=== PATIENT | female | born 1980 | race Caucasian/White ===

== ENCOUNTER 2016-12-15 17:42 | Emergency (ER) | payer BC, OTHER ==
[~2016-12-15] VITALS: Ht 165.1 cm; Wt 59.0 kg
[~2016-12-15 17:42] MED LIST: ACETAMIN-HYDROcod 325-5 MG PO; CIPR500T4 PO; FIORIC PO; ZOFR4TAB3 PO
[2016-12-15 17:44] VITALS: BP 135/70; PULSE 100; RESP 24; TEMP 97.8; O2SAT 100
[2016-12-15] MEDS ORDERED: MORPHINE SULFATE 4 MG/ML INJ IV PUSH ONE ×2 (20:30→22:15)
[2016-12-15] MEDS ORDERED: ONDANSETRON HCL 4 MG/2 ML VIAL IV PUSH ONE (20:30)
[2016-12-15 20:37] VITALS: O2SAT 99
--- NOTE | 2016-12-15 20:37 | PD ---
HPI Chief Complaint: Chest Pain Time Seen by Provider: 20:33 Travel History International Travel<30 days: No Contact w/Intl Traveler<30days: No Traveled to known affect area: No History of Present Illness HPI 36 yo female that presents to the ED for evaluation of left sided chest pain that radiated to her back. Patient reports that she's had this since about 2 hours. Per patient is pretty constant. Very painful 10 out of 10. Causes some shortness of breath with deep breaths. She denies any recent travel. No nausea or vomiting or fever. No cough or runny nose. Patient states that all she been doing today was helping cleaning but no acute injury that she can think of. She does have a history of gastric illness for which she is not really specific. Per patient she had some issues with her esophagus the needed to be dilated. Per patient she also has a history of sepsis in the past. She denies any similar symptoms like this before lower than 2 years ago when she had similar symptoms and she had a full workup that was essentially negative. From what I can tell patient was put on a Holter monitor with no obvious diagnoses. Patient has had no issues since until today. She denies any recent travel. Per patient she denies secondary to tubal ligation. 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]) Migraines: Yes ?: Not LMP: LAST MONTH Tubal Ligation: Yes Past Surgical History Abdominal Surgery: Yes (gall bladder) Ear Surgery: Yes (skin graft to eardrum) Oral Surgery: Yes (ESOPHAGEAL STRETCHING) Other Surgery: Yes (HOLES IN EARS REPAIRED ) Social History Alcohol Use: No Tobacco Use: No Substance Use: No Allergies-Medications (Allergen,Severity, Reaction): Coded Allergies: Codeine (Verified Allergy, Severe, Nausea/Vomiting, 02/16/16) *MDRO Multi-Drug Resistant Organism (Verified Adverse Reaction, Unknown, ) MRSA PCR screen (nares) POSITIVE - 02/16/16 Reported Meds & Prescriptions Reported Meds & Active Scripts Active Indomethacin 50 Mg Cap 50 Mg PO TID PRN Take with food, milk, or antacids to decrease stomach adverse effects. Percocet (Oxycodone-Acetaminophen) 5-325 mg Tab 1 Tab PO Q6H PRN Zofran ODT (Ondansetron HCl) 4 Mg Tab 4 Mg PO Q8HR PRN Cipro (Ciprofloxacin HCl) 500 Mg Tab 500 Mg PO BID 7 Days Fioricet Tab (Acetaminophen/Butalbital/Caffeine) 1 Tab 1 Tab PO Q6H PRN [ACETAMIN-HYDROcod 325-5 MG] 1 TAB Tab 1 Tab PO Q6HR PRN Review of Systems Except as stated in HPI: all other systems reviewed are Neg Physical Exam Narrative GENERAL: SKIN: Warm and dry. HEAD: Atraumatic. Normocephalic. EYES: Pupils equal and round. No scleral icterus. No injection or drainage. ENT: No nasal bleeding or discharge. Mucous membranes pink and moist. Tongue is midline. No uvula deviation. NECK: Trachea midline. No JVD. CARDIOVASCULAR: Regular rate and rhythm. No murmurs, S3, S4. Some of the pain is reproducible with touch. RESPIRATORY: No accessory muscle use. Clear to auscultation. Breath sounds equal bilaterally. GASTROINTESTINAL: Abdomen soft, non-tender, nondistended. Hepatic and splenic margins not palpable. MUSCULOSKELETAL: Extremities without clubbing, cyanosis, or edema. No obvious deformities. Full range of motion of the upper and lower extremities bilaterally. 2+ pulses bilaterally. NEUROLOGICAL: Awake and alert. No obvious cranial nerve deficits. Motor grossly within normal limits. Five out of 5 muscle strength in the arms and legs. Normal speech. PSYCHIATRIC: Appropriate mood and affect; insight and judgment normal. Data Data Last Documented VS Vital Signs Date Time Temp Pulse Resp B/P Pulse Ox O2 Delivery O2 Flow Rate FiO2 12/15/16 21:03 18 12/15/16 20:37 99 12/15/16 20:37 77 Room Air 12/15/16 17:44 97.8 135/70 Orders Electrocardiogram (12/15/16 ) Electrocardiogram (12/15/16 20:22) Complete Blood Count With Diff (12/15/16 20:22) Comprehensive Metabolic Panel (12/15/16 20:22) Ckmb (Isoenzyme) Profile (12/15/16 20:22) Troponin I (12/15/16 20:22) Lipase (12/15/16 20:22) D-Dimer (12/15/16 20:22) Magnesium (Mg) (12/15/16 20:22) Thyroid Stimulating Hormone (12/15/16 20:22) Chest, Single Ap (12/15/16 20:22) Iv Access Insert/Monitor (12/15/16 20:22) Ecg Monitoring (12/15/16 20:22) Oximetry (12/15/16 20:22) Morphine Inj (Morphine Inj) (12/15/16 20:30) Ondansetron Inj (Zofran Inj) (12/15/16 20:30) Ketorolac Inj (Toradol Inj) (12/15/16 21:30) Labs Laboratory Tests Test 12/15/16 20:30 White Blood Count 12.3 TH/MM3 Red Blood Count 4.74 MIL/MM3 Hemoglobin 14.2 GM/DL Hematocrit 42.3 % Mean Corpuscular Volume 89.2 FL Mean Corpuscular Hemoglobin 29.9 PG Mean Corpuscular Hemoglobin 33.6 % Concent Red Cell Distribution Width 13.6 % Platelet Count 281 TH/MM3 Mean Platelet Volume 8.0 FL Neutrophils (%) (Auto) 66.7 % Lymphocytes (%) (Auto) 23.6 % Monocytes (%) (Auto) 6.9 % Eosinophils (%) (Auto) 2.3 % Basophils (%) (Auto) 0.5 % Neutrophils # (Auto) 8.2 TH/MM3 Lymphocytes # (Auto) 2.9 TH/MM3 Monocytes # (Auto) 0.8 TH/MM3 Eosinophils # (Auto) 0.3 TH/MM3 Basophils # (Auto) 0.1 TH/MM3 CBC Comment DIFF FINAL Differential Comment D-Dimer Quantitative (PE/DVT) 0.33 MG/L FEU Sodium Level 139 MEQ/L Potassium Level 3.8 MEQ/L Chloride Level 104 MEQ/L Carbon Dioxide Level 23.9 MEQ/L Anion Gap 11 MEQ/L Blood Urea Nitrogen 15 MG/DL Creatinine 0.82 MG/DL Estimat Glomerular Filtration 78 ML/MIN Rate Random Glucose 83 MG/DL Calcium Level 9.3 MG/DL Magnesium Level 2.4 MG/DL Total Bilirubin 0.4 MG/DL Aspartate Amino Transf 13 U/L (AST/SGOT) Alanine Aminotransferase 17 U/L (ALT/SGPT) Alkaline Phosphatase 65 U/L Total Creatine Kinase 54 U/L Troponin I LESS THAN 0.02 NG/ML Total Protein 7.7 GM/DL Albumin 4.0 GM/DL Lipase 167 U/L Thyroid Stimulating Hormone 1.330 uIU/ML 3rd [facility] Medical Decision Making Medical Screen Exam Complete: Yes Emergency Medical Condition: Yes Medical Record Reviewed: Yes Interpretation(s) Last Impressions Chest X-Ray 12/15/162021 Signed Impressions: Service Date/Time: Thursday, December 15, 2016 20:44 - CONCLUSION: No evidence of acute cardiopulmonary disease. Rob Goddard MD CBC & BMP Diagram 12/15/16 20:30 Lipase and LFTs WNL troponin and CKMB negative EKG shows sinus rhythm with no sign of acute ischemia or arrhythmia. Per my attending read this possible OR depressions and some of the leads but there is a lot of motion The EKG. Possible Pericarditis Cannot Be Rule Out. Differential Diagnosis Chest pain versus a typical chest pain versus ACS versus PE Narrative Course 36-year-old female that presents to the ED for evaluation of left-sided chest pain. Patient was properly examined and was found to have signs and symptoms of unclear etiology. My attending Dr. Dewitt evaluated the patient with me. Labs and imaging were ordered. Pain medication ordered. Labs and imaging showed no sign of acute disease. D-dimer and everything came out negative. Case was discussed with my attending Dr. Dewitt who had already evaluated the patient and was made aware of all findings including the EKG and he recommends trial of anti-inflammatories and Percocet for pain. Unlikely this is pericarditis more likely muscular. This was discussed with the patient and family member who in agreement with plan. Patient was given another dose of morphine as she was still somewhat tender. Patient was told to come back to the ED if symptoms do not improve by tomorrow or the pain at all does not improve with medications given. See ED for any worsening symptoms. Diagnosis Primary Impression: Atypical chest pain Patient Instructions: General Instructions Additional Instructions: Take medications as prescribed. Follow-up with PCP. See ED for any worsening symptoms. Do not drink or drive while taking pain medication. Apply ice or heat as needed for pain Med/Other Pt SpecificInfo: Prescription(s) given Scripts Indomethacin 50 Mg Cap50 Mg PO TID PRN (PAIN SCALE 1 TO 10) #20 CAP Ref 0 Take with food, milk, or antacids to decrease stomach adverse effects. Prov:Markus Dewitt MD 12/15/16 Oxycodone-Acetaminophen (Percocet)5-325 mg Tab1 Tab PO Q6H PRN (PAIN) #20 TAB Ref 0 Prov:Markus Dewitt MD 12/15/16 Disposition: 01 DISCHARGE HOME Condition: Bhanu Summers Dec 15, 2016 20:37
[2016-12-15 21:03] VITALS: RESP 18
[2016-12-15 21:03] LABS: AUTOMATED NEUTROPHIL # 8.2 TH/MM3 (1.8-7.7); BASOPHIL # 0.1 TH/MM3 (0-0.2); BASOPHIL % 0.5 % (0.0-2.0); EOSINOPHIL # 0.3 TH/MM3 (0-0.4); EOSINOPHIL % 2.3 % (0.0-4.0); HEMATOCRIT 42.3 % (35.0-46.0); HEMO FLAGS DIFF FINAL; LYMPH % 23.6 % (9.0-44.0); LYMPHOCYTE # 2.9 TH/MM3 (1.0-4.8); MEAN CELL VOLUME 89.2 FL (80.0-100.0); MEAN CORPUSCULAR HEMOGLOBIN 29.9 PG (27.0-34.0); MEAN CORPUSCULAR HGB CONC 33.6 % (32.0-36.0); MONO % 6.9 % (0.0-8.0); NEUT % 66.7 % (16.0-70.0); PLATELET COUNT 281 TH/MM3 (150-450); RED BLOOD COUNT 4.74 MIL/MM3 (4.00-5.30); RED CELL DISTRIBUTION WIDTH 13.6 % (11.6-17.2); WHITE BLOOD COUNT 12.3 TH/MM3 (4.0-11.0)
--- NOTE | 2016-12-15 21:09 | RADRPT ---
EXAM DATE/TIME: 12/15/2016 20:44 [facility] COMPARISON: No previous studies available for comparison. INDICATIONS : Left sided chest pain starting today MEDICAL HISTORY : None. SURGICAL HISTORY : None. ENCOUNTER: Initial ACUITY: 1 day PAIN SCORE: 10/10 LOCATION: Left chest FINDINGS: A single view of the chest demonstrates the lungs to be symmetrically aerated without evidence of mas s, infiltrate or effusion. The cardiomediastinal contours are unremarkable. Osseous structures are intact. CONCLUSION: No evidence of acute cardiopulmonary disease. Rob Goddard MD on December 15, 2016 at 21:07 Board Certified Radiologist. This report was verified electronically.
[2016-12-15] MEDS ORDERED: KETOROLAC TROMETHAMINE 30 MG/ML (IVP) VIAL IV PUSH ONE (21:30)
[2016-12-15 21:34] LABS: ANION GAP 11 MEQ/L (5-15); AST (GOT) 13 U/L (15-37); BICARBONATE 23.9 MEQ/L (21.0-32.0); BLOOD UREA NITROGEN 15 MG/DL (7-18); CHLORIDE 104 MEQ/L (98-107); GLOMERULAR FILTRATION RATE 78 ML/MIN (>89); MAGNESIUM 2.4 MG/DL (1.5-2.5); POTASSIUM 3.8 MEQ/L (3.5-5.1); SODIUM (NA) 139 MEQ/L (136-145)
[2016-12-15 21:35] LABS: ALT (GPT) 17 U/L (10-53)
[2016-12-15 21:45] LABS: ALKALINE PHOSPHATASE 65 U/L (45-117); TOTAL BILIRUBIN ADULT 0.4 MG/DL (0.2-1.0)
[2016-12-15 21:48] LABS: CREATINE KINASE 54 U/L (26-192)
[2016-12-15] MEDS ORDERED: INDO50CA PO (22:02)
[2016-12-15] MEDS ORDERED: PERC5TAB12 PO (22:02)
--- NOTE | 2016-12-15 22:16 | PD ---
Data Data Last Documented VS Vital Signs Date Time Temp Pulse Resp B/P Pulse Ox O2 Delivery O2 Flow Rate FiO2 12/15/16 21:03 18 12/15/16 20:37 99 12/15/16 20:37 77 Room Air 12/15/16 17:44 97.8 135/70 Orders Electrocardiogram (12/15/16 ) Electrocardiogram (12/15/16 20:22) Complete Blood Count With Diff (12/15/16 20:22) Comprehensive Metabolic Panel (12/15/16 20:22) Ckmb (Isoenzyme) Profile (12/15/16 20:22) Troponin I (12/15/16 20:22) Lipase (12/15/16 20:22) D-Dimer (12/15/16 20:22) Magnesium (Mg) (12/15/16 20:22) Thyroid Stimulating Hormone (12/15/16 20:22) Chest, Single Ap (12/15/16 20:22) Iv Access Insert/Monitor (12/15/16 20:22) Ecg Monitoring (12/15/16 20:22) Oximetry (12/15/16 20:22) Morphine Inj (Morphine Inj) (12/15/16 20:30) Ondansetron Inj (Zofran Inj) (12/15/16 20:30) Ketorolac Inj (Toradol Inj) (12/15/16 21:30) Morphine Inj (Morphine Inj) (12/15/16 22:15) Labs Laboratory Tests Test 12/15/16 20:30 White Blood Count 12.3 TH/MM3 Red Blood Count 4.74 MIL/MM3 Hemoglobin 14.2 GM/DL Hematocrit 42.3 % Mean Corpuscular Volume 89.2 FL Mean Corpuscular Hemoglobin 29.9 PG Mean Corpuscular Hemoglobin 33.6 % Concent Red Cell Distribution Width 13.6 % Platelet Count 281 TH/MM3 Mean Platelet Volume 8.0 FL Neutrophils (%) (Auto) 66.7 % Lymphocytes (%) (Auto) 23.6 % Monocytes (%) (Auto) 6.9 % Eosinophils (%) (Auto) 2.3 % Basophils (%) (Auto) 0.5 % Neutrophils # (Auto) 8.2 TH/MM3 Lymphocytes # (Auto) 2.9 TH/MM3 Monocytes # (Auto) 0.8 TH/MM3 Eosinophils # (Auto) 0.3 TH/MM3 Basophils # (Auto) 0.1 TH/MM3 CBC Comment DIFF FINAL Differential Comment D-Dimer Quantitative (PE/DVT) 0.33 MG/L FEU Sodium Level 139 MEQ/L Potassium Level 3.8 MEQ/L Chloride Level 104 MEQ/L Carbon Dioxide Level 23.9 MEQ/L Anion Gap 11 MEQ/L Blood Urea Nitrogen 15 MG/DL Creatinine 0.82 MG/DL Estimat Glomerular Filtration 78 ML/MIN Rate Random Glucose 83 MG/DL Calcium Level 9.3 MG/DL Magnesium Level 2.4 MG/DL Total Bilirubin 0.4 MG/DL Aspartate Amino Transf 13 U/L (AST/SGOT) Alanine Aminotransferase 17 U/L (ALT/SGPT) Alkaline Phosphatase 65 U/L Total Creatine Kinase 54 U/L Troponin I LESS THAN 0.02 NG/ML Total Protein 7.7 GM/DL Albumin 4.0 GM/DL Lipase 167 U/L Thyroid Stimulating Hormone 1.330 uIU/ML 3rd Gen [facility] Supervised Visit with COLLINS: Yes Narrative Course The history, exam, and medical decision-making in the associated mid-level provider note were completed with my assistance. I reviewed and agree with the findings presented. I attest that I had a [id number] encounter with the patient on the same day, and personally performed and documented my assessment and findings in the medical record. *My assessment and Findings: 36 year-old woman constant chest pain 3 hours, no clear relieving factors. EKG may suggest some pericarditis. Pain is not positional in nature. No other symptoms to confirm pericarditis. Labs are unremarkable. X-rays unremarkable. We'l recommend conservative management, NSAIDs, pain medicine if needed. Diagnosis Primary Impression: Atypical chest pain Patient Instructions: General Instructions Additional Instruction: Take medications as prescribed. Follow-up with PCP. See ED for any worsening symptoms. Do not drink or drive while taking pain medication. Apply ice or heat as needed for pain Scripts Indomethacin 50 Mg Cap50 Mg PO TID PRN (PAIN SCALE 1 TO 10) #20 CAP Ref 0 Take with food, milk, or antacids to decrease stomach adverse effects. Prov:Markus Dewitt MD 12/15/16 Oxycodone-Acetaminophen (Percocet)5-325 mg Tab1 Tab PO Q6H PRN (PAIN) #20 TAB Ref 0 Prov:Markus Dewitt MD 12/15/16 Disposition: 01 DISCHARGE HOME Condition: Stable Markus Dewitt MD Dec 15, 2016 22:16
--- NOTE | 2016-12-16 15:28 | EKG ---
Date Performed: 12/15/2016 Time Performed: 18:04:46 PTAGE: 36 years EKG: Sinus rhythm WITH MARKED SINUS ARRHYTHMIA BORDERLINE ECG Compared to prior tracing no significant change PREVIOUS TRACING : 02/15/2016 18.40 DOCTOR: Alphonso Keating Interpretating Date/Time 12/16/2016 15:27:21
== END 2016-12-15 22:39 | disposition home or self-care (01) ==
LOC: NEPE 17:42
DX: R07.89 Other chest pain (principal); R06.02 Shortness of breath; I49.8 Other specified cardiac arrhythmias
CPT/HCPCS: 71010; 80053; 82550; 83690; 83735; 84443; 84484; 85025; 85379; 93005; 96374; 96375; 96376; 99285; J1885; J2270; J2405

== ENCOUNTER 2017-06-15 08:55 | Emergency (ER) | payer OTHER ==
[~2017-06-15] VITALS: Ht 165.1 cm; Wt 62.8 kg
[~2017-06-15 08:55] MED LIST changes: +INDO50CA PO; +PERC5TAB12 PO
[2017-06-15 09:22] VITALS: BP 134/71; PULSE 86; RESP 16; TEMP 98.1; O2SAT 97
--- NOTE | 2017-06-15 09:41 | PD ---
HPI Chief Complaint: Back/ Neck Pain or Injury Time Seen by Provider: 09:32 Travel History International Travel<30 days: No Contact w/Intl Traveler<30days: No Traveled to known affect area: No History of Present Illness HPI Patient comes in complaining of right low back pain that began 5 days ago. Patient denies any loss or change in bowel or bladder, fevers, IV drug use, or reports she's had a tubal ligation. Patient describes pain is sharp stabbing pain radiates down her right lower extremity. Pain is worse with certain movement. Patient has been going to a chiropractor for adjustments along with having a TENS unit in place with no improvement of symptoms. Denies any chest pain, abdominal pain, shortness of breath, or numbness or tingling anywhere. Denies any trauma. 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 PFSH Past Medical History Anxiety: Yes Depression: Yes Cancer: Yes Cardiovascular Problems: Yes Diminished Hearing: No Gastrointestinal Disorders: Yes GERD: Yes Headaches: Yes Neurologic: Yes Psychiatric: Yes Reproductive: Yes (cevical cancer[froze cervix]) Migraines: Yes Influenza Vaccination: No ?: Not LMP: 2 weeks ago Tubal Ligation: Yes Past Surgical History Abdominal Surgery: Yes (gall bladder) Ear Surgery: Yes (skin graft to eardrum) Oral Surgery: Yes (ESOPHAGEAL STRETCHING) Other Surgery: Yes (HOLES IN EARS REPAIRED ) Social History Alcohol Use: No Tobacco Use: No Substance Use: No Allergies-Medications (Allergen,Severity, Reaction): Coded Allergies: codeine (Unverified Allergy, Severe, Nausea/Vomiting, 06/15/17) *MDRO Multi-Drug Resistant Organism (Verified Adverse Reaction, Unknown, 06/15/17) MRSA PCR screen (nares) POSITIVE - 02/16/16 Reported Meds & Prescriptions Reported Meds & Active Scripts Active Flexeril (Cyclobenzaprine HCl) 10 Mg Tab 10 Mg PO Q8HR PRN Naprosyn (Naproxen) 500 Mg Tab 500 Mg PO Q12HR PRN Review of Systems Except as stated in HPI: all other systems reviewed are Neg Physical Exam Narrative GENERAL: Well-developed, well nourished, in no acute distress, and non-ill appearing. SKIN: Focused skin assessment warm and dry. HEAD: Atraumatic. Normocephalic. EYES: Pupils equal and round. EOMI. No scleral icterus. No injection or drainage. ENT: No nasal bleeding or discharge. Mucous membranes pink and moist. NECK: Trachea midline. Supple. No nuclear rigidity. RESPIRATORY: No accessory muscle use. No respiratory distress. GASTROINTESTINAL: Abdomen soft, non-tender, nondistended, and no guarding. Hepatic and splenic margins not palpable. No pulsatile mass. MUSCULOSKELETAL: No obvious deformities. No clubbing. No cyanosis. No edema. Full range of motion. No tenderness or crepitus or midline lumbar spine. Patient reportedly palpation right lateral lumbar muscles. Straight leg test positive on the right. Normal gait. NEUROLOGICAL: Awake and alert. No obvious cranial nerve deficits. Motor grossly within normal limits. Normal speech. PSYCHIATRIC: Appropriate mood and affect; insight and judgment normal. Data Data Last Documented VS Vital Signs Date Time Temp Pulse Resp B/P (MAP) Pulse Ox O2 Delivery O2 Flow Rate FiO2 06/15/17 11:48 77 16 113/80 (91) 100 06/15/17 09:22 98.1 Orders Orders Urinalysis - C+S If Indicated (06/15/17 09:16) Ketorolac Inj (Toradol Inj) (06/15/17 09:45) Orphenadrine Inj (Norflex Inj) (06/15/17 09:45) Ct Abd/Pel W/O Iv Contrast (06/15/17 10:12) Ed Discharge Order (06/15/17 11:05) Acetamin-Hydrocod 325-5 Mg ([place] 5-325 (06/15/17 11:15) Acetamin-Hydrocod 325-5 Mg ([place] 5-325 (06/15/17 11:18) Labs Laboratory Tests Test 06/15/17 09:40 Urine Collection Type CLEAN CATCH Urine Color YELLOW Urine Turbidity CLEAR Urine pH 5.0 Urine Specific [place] 1.028 Urine Protein NEG mg/dL Urine Glucose (UA) NEG mg/dL Urine Ketones TRACE mg/dL Urine Occult Blood SMALL Urine Nitrite NEG Urine Bilirubin NEG Urine Leukocyte Esterase NEG Urine RBC 4-9 /hpf Urine WBC 0-2 /hpf Urine Squamous Epithelial Cells > 8 /hpf Urine Bacteria FEW /hpf Microscopic Urinalysis Comment CULT NOT INDICATED Urine Collection Time 09:40 [facility] Medical Decision Making Medical Screen Exam Complete: Yes Emergency Medical Condition: Yes Interpretation(s) CT abdomen and pelvis read by the radiologist shows: 1. The small gas bubbles within the right buttock region. This is felt to be from previous injection. 2. The examination is otherwise unremarkable. Differential Diagnosis Fracture, strain, UTI, renal calculi Narrative Course The patient presented complaining of back pain. There was no history of recent fall or blunt trauma. However, history elicited activity likely causing muscular strain and injury. There was no evidence to support genitourinary etiology. There is also no evidence to suggest vascular pathology such as AAA dissection. No fevers or other evidence to suspect infectious processes, abscess , osteomyelitis etc. The patients neurological exam is normal with normal motor and sensory. There is no saddle paresthesias reported and no bowel or bladder incontinence or retention. I suspect the pain is mechanical in nature. Clinical suspicion, plan of care and management was discussed with the patient. The patient was instructed to follow up with their health care provider. The patient was also instructed to return if the pain worsened, changed, or developed weakness or bowel or bladder trouble. The patient agreed with plan. Patient was found to have asymptomatic hematuria. No obvious evidence of infection. CT scan ruled out kidney stone. This finding was discussed with the patient and the patient was instructed to follow up with primary care doctor to recheck urine and possible referral to urology if needed and rule out etiologies such as cancer. Patient agreed with plan. Patient in no obvious distress upon re-evaluation. All pertinent laboratory/ Radiology result(s) discussed with patient. Patient was asked if they wanted to speak to my attending, which the patient did not wish to do at this time. Any questions/concerns in reference to patient diagnosis/condition discussed and clarified prior to patient's discharge. Reinforced sheer importance of close follow up with patient's primary physician or primary care clinic and/or orthopedic. Instructed patient to return to ED immediately, if symptoms return/ worsen. Patient showed understanding of above instructions. Further instructions and recommendations were detailed in discharge paperwork. Patient ambulated without difficulty out of ED at discharge. Diagnosis Primary Impression: Back pain Qualified Codes: M54.41 - Lumbago with sciatica, right side Referrals: Jhony Fernandez MD [facility] Patient Instructions: Acute Low Back Pain (ED), General Instructions, Lower Back Exercises (ED) Additional Instructions: Follow-up with your primary care physician and/or orthopedics in 3-5 days for reevaluation. Follow-up with adjuster piano action regarding questionable fibroid noted on CT today. Take all medication as prescribed. Return to the emergency department if symptoms get worse. Med/Other Pt SpecificInfo: Prescription(s) given Scripts Cyclobenzaprine (Flexeril) 10 Mg Tab 10 MG PO Q8HR Y for MUSCLE PAIN, #15 TAB 0 Refills Prov: Alva Stevens MD 06/15/17 Naproxen (Naprosyn) 500 Mg Tab 500 MG PO Q12HR Y for PAIN SCALE 1 TO 10, #14 TAB 0 Refills Prov: Alva Stevens MD 06/15/17 Disposition: 01 DISCHARGE HOME Condition: Stable Quinton Dickson Jun 15, 2017 09:41
[2017-06-15] MEDS ORDERED: KETOROLAC TROMETHAMINE 60 MG/2 ML (IM) VIAL IM ONE (09:45)
[2017-06-15] MEDS ORDERED: ORPHENADRINE INJ 60 MG/2 ML AMP IM ONE (09:45)
[2017-06-15 09:55] LABS: BLOOD, URINE SMALL (NEG); GLUCOSE,URINE NEG (NEG); KETONE, URINE TRACE mg/dL (NEG); NITRITE,URINE NEG (NEG)
[2017-06-15 10:03] LABS: METHOD OF COLLECTION CLEAN CATCH; URINE COLOR YELLOW (YELLW/STRAW); WBC, URINE 0-2 /hpf (0-5)
[2017-06-15 10:04] LABS: BACTERIA, URINE FEW /hpf; COMMENT (UR) CULT NOT INDICATED; CULTURE IF INDICATED CULT NOT INDICATED; SQUAMOUS EPITHELIAL CELL URINE > 8 /hpf (0-5)
--- NOTE | 2017-06-15 10:56 | RADRPT ---
EXAM DATE/TIME: 06/15/2017 10:39 [facility] COMPARISON: CT ABDOMEN & PELVIS W/O CONTRAST, February 16, 2016, 4:18. INDICATIONS : Low back pain x 5 days. ORAL CONTRAST: No oral contrast ingested. RADIATION DOSE: 9.32 CTDIvol (mGy) MEDICAL HISTORY : Gastroesophageal reflux disease. SURGICAL HISTORY : Tubal ligation. Cholecystectomy. ENCOUNTER: Initial ACUITY: 4 - 6 days PAIN SCALE: 8/10 LOCATION: Bilateral low back TECHNIQUE: Volumetric scanning of the abdomen and pelvis was performed. Using automated exposure control and ad justment of the mA and/or kV according to patient size, radiation dose was kept as low as reasonably achievable to obtain optimal diagnostic quality images. DICOM format image data is available electro nically for review and comparison. FINDINGS: Right kidney/ureter: The right kidney is normal in size. There is no hydronephrosis. The ureter is followed down to the bl adder and is normal in appearance. Left kidney/ureter: The left kidney is normal in size. There is no hydronephrosis. No stones are seen. The left ureter is followed down to the bladder and is unremarkable in appearance. Bladder: The contours of the bladder are unremarkable. No stones are seen within the bladder. CT source data: The limited portion of lung bases visualized is clear. The portions of liver and spleen visualized are unremarkable. The pancreas and adrenal glands are int act. The patient is post cholecystectomy. The abdominal aorta is normal in caliber. There is no retro peritoneal adenopathy. No free air or free fluid is seen. The uterus is enlarged suggesting uterine fibroids. There is no free fluid within the pelvis. No yi c or inguinal adenopathy is seen. The examination does demonstrate some small gas bubbles within the subcutaneous tissues of the right buttocks suggesting previous injection. The visualized bony structures are intact. CONCLUSION: 1. The small gas bubbles within the right buttock region. This is felt to be from previous injection. 2. The examination is otherwise unremarkable. Stevan Pang MD on June 15, 2017 at 10:49 Board Certified Radiologist. This report was verified electronically.
[2017-06-15] MEDS ORDERED: CYCL10TA PO (11:05)
[2017-06-15] MEDS ORDERED: NAPR500 PO (11:05)
[2017-06-15] MEDS ORDERED: ACETAMINOPHEN/HYDROcodone 325 MG/5 MG TAB PO ONE (11:15)
[2017-06-15] MEDS ORDERED: ACETAMINOPHEN/HYDROcodone 325 MG/5 MG TAB ONE (11:18)
[2017-06-15 11:48] VITALS: BP 113/80
== END 2017-06-15 11:47 | disposition home or self-care (01) ==
LOC: PHEFT 08:55
DX: M54.41 Lumbago with sciatica, right side (principal); Z85.41 Personal history of malignant neoplasm of cervix uteri
CPT/HCPCS: 74176; 81001; 96372; 99285; J1885; J2360